=== PATIENT | female | born 1975 | race Caucasian/White ===

== ENCOUNTER 2020-11-28 09:23 | Emergency (ER) | payer OTHER ==
[2020-11-28] MEDS ORDERED: CYCLOBENZAPRINE5 MG PO (12:59)
[2020-11-28] MEDS ORDERED: HYDROCODON-ACE1 EAC4 PO (13:18)
== END 2020-11-28 13:46 | disposition home or self-care (01) ==
LOC: ER1 09:23
DX: S16.1XXA Strain of muscle, fascia and tendon at neck level, initial encounter (principal); S39.012A Strain of muscle, fascia and tendon of lower back, initial encounter; S29.012A Strain of muscle and tendon of back wall of thorax, initial encounter; S50.02XA Contusion of left elbow, initial encounter; M50.223 Other cervical disc displacement at C6-C7 level; R51.9 Headache, unspecified; E11.9 Type 2 diabetes mellitus without complications; I10 Essential (primary) hypertension; K21.9 Gastro-esophageal reflux disease without esophagitis; Z79.899 Other long term (current) drug therapy; V49.40XA Driver injured in collision with unspecified motor vehicles in traffic accident, initial encounter; Y92.410 Unspecified street and highway as the place of occurrence of the external cause
CPT/HCPCS: 70450; 72070; 72100; 72125; 73080; 99284

== ENCOUNTER 2022-02-09 18:55 | Emergency (ER) | payer OTHER ==
[~2022-02-09 18:55] MED LIST: CYCLOBENZAPRINE5 MG PO; HYDROCODON-ACE1 EAC4 PO
[2022-02-09] MEDS ORDERED: IBUPROFEN600 MG PO (20:28)
== END 2022-02-09 20:49 | disposition home or self-care (01) ==
LOC: ER1 18:55
DX: S83.91XA Sprain of unspecified site of right knee, initial encounter (principal); W22.8XXA Striking against or struck by other objects, initial encounter
CPT/HCPCS: 73564; 99283